=== PATIENT | female | born 1980 | race Caucasian/White ===

== ENCOUNTER 2019-09-16 10:07 | Emergency (ER) | payer BC, SELFPAY ==
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
[2019-09-16 10:18] VITALS: BP 119/97; PULSE 76; RESP 18; TEMP 37.4; O2SAT 100
== END 2019-09-16 10:33 | disposition home or self-care (01) ==
PROVIDERS: Emergency Provider Nurse Practitioner Family
DX: S39.012A Strain of muscle, fascia and tendon of lower back, initial encounter (principal); X58.XXXA Exposure to other specified factors, initial encounter
CPT/HCPCS: 99213; G0463

== ENCOUNTER 2020-02-16 14:05 | Emergency (ER) | payer BC, SELFPAY ==
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
[2020-02-16 14:14] VITALS: BP 116/78; PULSE 93; RESP 18; TEMP 36.3; O2SAT 99
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
== END 2020-02-16 14:40 | disposition home or self-care (01) ==
PROVIDERS: Emergency Provider Nurse Practitioner; PCP Emergency Medicine
DX: J03.90 Acute tonsillitis, unspecified (principal); Z20.828 Contact with and (suspected) exposure to other viral communicable diseases; F32.9 Major depressive disorder, single episode, unspecified
CPT/HCPCS: 87081; 87147; 87880; 99213; G0463

== ENCOUNTER 2020-08-18 02:10 | Outpatient (CLI) | payer BC, SELFPAY ==
[2020-08-18 17:23] LABS: SARS-CoV-2 RNA PCR Negative
== END 2020-08-18 02:11 | disposition home or self-care (01) ==
LOC: ANHCOVIDDT 02:10
PROVIDERS: PCP Emergency Medicine; Visit Provider Obstetrics & Gynecology
DX: Z01.812 Encounter for preprocedural laboratory examination (principal); Z20.822 Contact with and (suspected) exposure to COVID-19
CPT/HCPCS: 86850; 86900; 86901; C9803; U0003

== ENCOUNTER 2020-08-18 09:27 | Outpatient (CLI) | payer BC, SELFPAY | END 2020-08-18 09:28 | disposition home or self-care (01) | LOC: ANHSURGERY 09:32 | PROVIDERS: PCP Emergency Medicine; Visit Provider Obstetrics & Gynecology | DX: Z01.812 Encounter for preprocedural laboratory examination (principal); D25.9 Leiomyoma of uterus, unspecified | CPT/HCPCS: 36415; 86850; 86900; 86901 ==

== ENCOUNTER 2020-08-21 01:34 | Day surgery (SDC) | payer BC, SELFPAY ==
[2020-08-16 10:45] VITALS: BMI 31.9
[2020-08-21] VITALS (13 sets, daily range): BP systolic 102–125; BP diastolic 64–81; PULSE 86–107; RESP 14–20; TEMP 36.3–37.1; O2SAT 95–100
[2020-08-21] MEDS: ACETAMINOPHEN 500 MG TABLET 1000 MG PO (11:25)
[2020-08-21] MEDS: LACTATED RINGERS 1,000 ML 30 ML IV CONT ×2 (11:54→14:41)
[2020-08-21] MEDS: KETOROLAC 15 MG/ML VIAL (*BKC) IV PUSH (11:56)
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
--- NOTE | 2020-08-21 12:30 | WPDHPUPDATE1 ---
History and Physical Update Update Date/Time: 08/21/20 12:30 History and Physical has been reviewed, including an updated exam of the patient. There are NO changes in the patient's condition. Risks, benefits, and alternatives have been discussed and questions answered. Patient agrees to proceed with procedure.
[2020-08-21] MEDS: ceFAZolin 2 GM/D5W 50 ML 2 GM/50 ML BAG IVPB (12:46)
--- NOTE | 2020-08-21 14:30 | PM.PROC ---
Procedure Note - Detailed Date of procedure: 08/21/20 Pre-op diagnosis: Uterine Leiomyoma Myoma, menorrhagia Post-op diagnosis: same Procedure performed: Total laparoscopic hysterectomy. Description of procedure: The patient was taken to the operating room. She was prepped and draped in the dorsal lithotomy position. A speculum was placed in the vagina. The cervix was grasped with a tenaculum. Stay sutures were placed at 3 and 9:00 a.m. of 0 Vicryl. The stay sutures were brought through the Gretchen up. The MARISSA manipulator was placed in the vagina with a fixed Gretchen cup. The cup was then pushed up around the cervix. The sutures were tied to the handle of the MARISSA manipulator. A 5 mm incision was made on the abdominal skin of the left upper quadrant using a scalpel. A 5 mm trocar was inserted into the intra-abdominal cavity under direct visualization the scope. Pneumoperitoneum was achieved. An 11 mm incision was made in the left lower quadrant of the abdomen with a scalpel. A 11 mm trocar was inserted into the intra-abdominal cavity under direct visualization the scope. A 5 mm periumbilical incision was made. A 5 mm scope was placed into the intra-abdominal cavity under direct visualization of the scope. The suspensory ligament of the ovary was cauterized and transected with ligature cautery in a bilateral fashion. The fallopian tubes were cauterized and transected in a bilateral fashion with LigaSure cautery. The round ligaments were cauterized and transected in bilateral fashion with LigaSure cautery. The round ligaments were cauterized and transected bilaterally with LigaSure cautery. The broad ligaments were cauterized and transected along the lateral aspects of the uterus down the level of the uterine arteries. A bladder flap was created using sharp and blunt dissection. The ureters were dissected out bilaterally down to the level of the uterine arteries. They could be visualized from the pelvic brim down the uterine arteries. Staying very close to the cervix the parametrium was cauterized transected in a stepwise fashion down to the level of the Gretchen cup. The Bladder flap was moved distally over the Gretchen cup using sharp and blunt dissection. The impression of the entire cup was visualized around the cervix. An incision was made with unipolar cautery down under the Gretchen cup creating a colpotomy incision all the way around the cervix. The uterus was taken out through the vagina. A pneumo occluder was placed in the vagina. The vagina was closed with 0 V lock suture in a running fashion. The ureters were identified again and found to be intact to the level of the uterine arteries. The pelvis was irrigated with a copious amount of antibiotic irrigation. The pneumoperitoneum was reduced. The trocars were removed. The skin was closed subcuticular 4 Monocryl covered with Dermabond. The pneumo occluder was removed from the vagina. The vagina was irrigated with Betadine. The patient tolerated the procedure well. She was taken to the recovery room in stable condition. Sponge lap and needle counts were correct x2. Anesthesia: GETA Surgeon: Kyra Cisneros MD Estimated blood loss (mL): 100 Drains: No Packing: No Pathology: yes Complications: No immediate complications Condition: stable Disposition: PACU Findings: Grossly normal appearing tubes and ovaries. Uterus - 13cm
[2020-08-21] MEDS: fentaNYL CITRATE INJ (*CRX) 100 MCG/2 ML VIAL 25 MCG IV PUSH ×4 (14:44→15:00)
--- NOTE | 2020-08-21 15:22 | SUR.PHASEI ---
PT AWAKE AND ALERT. DENIES PAIN. EATING ICE CHIPS. TALKATIVE.
[2020-08-21] MEDS: DEXTROSE 5%/LACTATED RINGERS 1,000 ML 125 ML IV CONT (16:06)
[2020-08-21] MEDS: HYDROcodone/acetaminophen (*CRX) 5-325 MG TABLET 1 TAB PO (16:55)
[2020-08-21] MEDS: KETOROLAC 30 MG/ML VIAL (*BKC) IV PUSH (18:41)
[2020-08-21] MEDS: HYDROcodone/acetaminophen (*CRX) 10-325 MG TABLET 1 TAB PO (21:20)
[2020-08-21] MEDS: ZOLPIDEM TARTRATE (*CRX) 5 MG TABLET 10 MG PO (22:21)
[2020-08-21] MEDS: SIMETHICONE 80 MG TAB.CHEW PO (22:22)
[2020-08-22] VITALS: BP 119/66; PULSE 94; PULSE 96; RESP 16; TEMP 36.7; O2SAT 100; O2SAT 97
[2020-08-22] MEDS: HYDROcodone/acetaminophen (*CRX) 5-325 MG TABLET 1 TAB PO ×2 (04:50→09:27)
[2020-08-22] MEDS: IBUPROFEN 600 MG TABLET PO (04:50)
[2020-08-22 04:54] VITALS: BP 126/70; PULSE 110; RESP 18; TEMP 36.4; O2SAT 97
--- NOTE | 2020-08-22 08:02 | WPDANESPN ---
Anes - Prog Note Post-Op Date/Time: 08/22/20 08:02 Cardiovascular status: normal Respiratory status: normal Airway patency: baseline Mental status: baseline Post-Op hydration status: normal Vital Signs: Last Vital Signs Temp 36.4 C 08/22/20 04:54 Pulse 110 H 08/22/20 04:54 Resp 18 08/22/20 04:54 BP 126/70 08/22/20 04:54 Pulse Ox 97 08/22/20 04:54 Pain Score (VAS): 0 Post-procedural complaints: none Patient Feedback: Patient satisfied with anesthetic care.
--- NOTE | 2020-08-22 08:10 | PM.GYNPNOP ---
MEMBERSHIP COUNSELOR - A/P Postoperative Procedures: Procedures Operation Date: 08/21/20 13:00 Actual Procedures Side Surgeon p Laparoscopic Assisted Total Vaginal Hysterectomy Kyra Cisneros MD Postoperative day: 1 Postoperative status: doing well Postoperative plan: see orders Time Spent With Patient Time: Total time spent is greater than 50% in coordination of care (as documented) at patient's floor/unit and/or counseling patient: Time with patient: less than 15 minutes MEMBERSHIP COUNSELOR- PN:Subj Post-Op Subjective Date/time seen: 08/22/20 08:10 Subjective: patient reports feeling better, patient has no complaints and pain is well controlled Exam Const: General: healthy appearing, comfortable and no acute distress Resp: Auscultation: clear to auscultation bilaterally, no rales, no rhonchi and no wheezes Cardio: Rate: regular rate Heart sounds: no click, no murmurs and no rubs GI: Inspection: non-distended Auscultation: normal bowel sounds Extrem: General: normal to inspection, no pedal edema and no calf tenderness MEMBERSHIP COUNSELOR - PN: Obj Data Vital Signs Vital Signs: Vital Signs - 24 hr 08/21/20 11:04 08/21/20 14:22 08/21/20 14:35 Temperature 98.6 F 97.8 F 97.9 F Pulse Rate 104 H 95 88 Respiratory Rate 14 19 15 Blood Pressure 118/80 114/64 117/65 Pulse Oximetry 96 100 100 08/21/20 14:50 08/21/20 15:05 08/21/20 15:20 Temperature 98.7 F 98.8 F Pulse Rate 90 94 95 Respiratory Rate 16 18 17 Blood Pressure 116/69 115/76 113/69 Pulse Oximetry 99 98 98 08/21/20 15:55 08/21/20 16:00 08/21/20 16:15 Temperature 97.6 F Pulse Rate 86 107 H 93 Respiratory Rate 18 18 18 Blood Pressure 120/75 102/75 113/81 Pulse Oximetry 95 98 08/21/20 16:30 08/21/20 17:00 08/21/20 18:00 Temperature Pulse Rate 100 96 93 Respiratory Rate 20 16 Blood Pressure 125/78 120/70 Pulse Oximetry 96 98 97 08/21/20 18:55 08/22/20 00:00 08/22/20 04:54 Temperature 97.3 F L 98.1 F 97.6 F Pulse Rate 94 94 110 H Respiratory Rate 16 16 18 Blood Pressure 124/76 119/66 126/70 Pulse Oximetry 100 100 97 Intake/Output Intake/Output: Intake & Output 08/19/20 08/20/20 08/21/20 08/22/20 23:59 23:59 23:59 23:59 Intake Total 250 Output Total 175 Balance 75 Meds/Results Medications: Active Medications Generic Name Dose Route Start Last Admin Trade Name Freq PRN Reason Stop Dose Admin Hydrocodone Bitart/Acetaminophen 1 tab 08/21/20 15:27 08/22/20 04:50 Hydrocodone/Acetaminophen (*Crx) 5-325 Mg Tablet PO 1 tab Q3H PRN Administration Pain Rated 5 or Less Hydrocodone Bitart/Acetaminophen 1 tab 08/21/20 15:27 08/21/20 21:20 Hydrocodone/Acetaminophen (*Crx) 10-325 Mg Tablet PO 1 tab Q3H PRN Administration Pain Rated 6 or Greater Bupropion HCl 150 mg 08/21/20 21:00 08/21/20 21:20 Bupropion Hcl Sr (12hr) 150 Mg Tab PO 150 mg Q12HR JESSICA Administration Dextrose/Lactated Ringer's 1,000 mls @ 125 mls/hr 08/21/20 15:27 08/22/20 01:49 Dextrose 5%/Lactated Ringers IV CONT Not Given .Q8H JESSICA Ibuprofen 600 mg 08/21/20 15:27 08/22/20 04:50 Ibuprofen 600 Mg Tablet PO 600 mg Q6H PRN Administration Cramping Ketorolac Tromethamine 30 mg 08/21/20 15:27 08/21/20 18:41 Ketorolac 30 Mg/Ml Vial (*Bkc) IV PUSH 08/26/20 15:28 30 mg Q6H PRN Administration Pain Rated 4-6 Naloxone HCl 0.1 mg 08/21/20 15:27 Naloxone Hcl 0.4 Mg/Ml Vial IV PUSH Q2M PRN Respiratory rate less than 10 Ondansetron HCl 4 mg 08/21/20 15:27 Ondansetron Inj 4 Mg/2 Ml Vial IV PUSH Q6H PRN Nausea And Vomiting Simethicone 80 mg 08/21/20 21:33 08/21/20 22:22 Simethicone 80 Mg Tab.Chew PO 80 mg Q2HR PRN Administration Gas Discomfort Zolpidem Tartrate 10 mg 08/21/20 21:34 08/21/20 22:21 Zolpidem Tartrate (*Crx) 5 Mg Tablet PO 10 mg HS PRN Administration Insomnia
[2020-08-22 08:40] VITALS: BP 126/77; PULSE 102; RESP 18; TEMP 37.7; O2SAT 100
[2020-08-22] MEDS: SIMETHICONE 80 MG TAB.CHEW PO (09:26)
[2020-08-22] MEDS: DOCUSATE SODIUM 100 MG CAPSULE PO (09:36)
== END 2020-08-22 10:55 | disposition home or self-care (01) ==
LOC: ANHSURGERY 10:51 → ANHOB2 17:28
PROVIDERS: PCP Emergency Medicine; Visit Provider Obstetrics & Gynecology
PROC: 0UT9FZZ Resection of Uterus, Via Natural or Artificial Opening With Percutaneous Endoscopic Assistance (ICD-10-PCS; CPT 58572; principal; 2020-08-21 13:00)
DX: D25.0 Submucous leiomyoma of uterus (principal); N80.0 Endometriosis of uterus; D25.2 Subserosal leiomyoma of uterus; Z23 Encounter for immunization; F32.9 Major depressive disorder, single episode, unspecified; E66.9 Obesity, unspecified; Z68.31 Body mass index [BMI] 31.0-31.9, adult
CPT/HCPCS: 58572; 88307; 90471; 90653; 99199; A9270; G0008; J0690; J1170; J1885; J2250; J3010; J7030; J7120; J7121

== ENCOUNTER 2021-08-19 10:47 | Emergency (ER) | payer BC, SELFPAY ==
[2021-08-19 11:09] VITALS: BP 123/78; PULSE 78; RESP 16; TEMP 37.3; O2SAT 100
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
== END 2021-08-19 11:45 | disposition home or self-care (01) ==
PROVIDERS: Emergency Provider Nurse Practitioner Family; PCP Emergency Medicine
DX: J03.91 Acute recurrent tonsillitis, unspecified (principal); L30.9 Dermatitis, unspecified; E66.9 Obesity, unspecified; Z68.30 Body mass index [BMI] 30.0-30.9, adult; F32.A Depression, unspecified
CPT/HCPCS: 87081; 87880; 99213; G0463